=== PATIENT | female | born 1965 | race Caucasian/White ===

== ENCOUNTER 2016-06-05 15:42 | Emergency (ER) | payer BC ==
[2016-06-05] MEDS ORDERED: DICYCLOMINE 20MG/2ML VIAL IM ONE (22:09)
[2016-06-05] MEDS ORDERED: SODIUM CHLORIDE 0.9% 1,000 ML ONE (22:09)
== END 2016-06-06 00:17 | disposition home or self-care (01) ==
LOC: ER 15:42
DX: R11.10 Vomiting, unspecified (principal); R19.7 Diarrhea, unspecified; I10 Essential (primary) hypertension
CPT/HCPCS: 36415; 80053; 81003; 82274; 83690; 85025; 96360; 96372